=== PATIENT | male | born 1975 | race Caucasian/White ===

== ENCOUNTER 2016-12-12 22:30 | Emergency (ER) | payer SELFPAY ==
[2016-12-12] MEDS ORDERED: ALBUTEROL SULFATE 2.5 MG/3 ML NEB ONE (22:41)
[2016-12-12] MEDS ORDERED: ALBUTEROL SULFATE 8.5 GM HFA INHALER INH SCH (22:45)
[2016-12-12 22:48] VITALS: RESP 18; TEMP 97
--- NOTE | 2016-12-12 22:48 | PDOC ---
Wheezing / Asthma HPI - General Chief Complaint: Wheezing / Asthma Stated Complaint: ASTHMA ATTACK Date Seen by Provider: 12/12/16 Time Seen by Provider: 22:40 Source: POSITIVE: Patient Exam Limitations: POSITIVE: No limitations Nurse's Notes Reviewed & Considered: Yes - History of Present Illness Initial Comments: The patient is a 41-year-old male who presents to the emergency department with asthma stating that he ran out of his albuterol inhaler this morning. He has a history of asthma that has been slightly worse since he moved to this area from [place] 3 months ago. He states that he generally uses albuterol inhaler once or twice a day at the most and some days not at all. He states that he ran out of his albuterol inhaler this morning. This evening he started wheezing and felt like he needed an inhaler and didn't have one. He denies any recent illness or any other associated symptoms. - Patient Home Medications Home Medications: Home Medications Albuterol 17 gm IH PRN 12/12/16 Testosterone Cypionate [Depo-Testosterone] 200 mg IM WEEKLY 12/12/16 - Patient Allergies Allergies/Adverse Reactions: Allergies Allergy/AdvReac Type Severity Reaction Status Date / Time Fish Containing Products Allergy ITCHING Verified 12/12/16 22:36 Past Medical History Past Medical History Reviewed: Other (please comment) (He reports a history of asthma as well as low testosterone) ROS - Limitations ROS Limitations: No Limitations Constitution: DENIES: Chills, Fever Cardiovascular: REPORTS: Other (Some chest tightness from his asthma) Respiratory: REPORTS: Wheezing Neurological: REPORTS: Denies Neuro Symptoms Gastrointestinal: REPORTS: Denies GI Symptoms Wheezing / Asthma Exam - HEENT HEENT: POSITIVE: Head Inspection Nml - General Appearance General Appearance: REPORTS: Alert, No Acute Distress - Neck Neck: REPORTS: Normal Inspection. DENIES: Lymphadenopathy - Respiratory Respiratory: REPORTS: No Respiratory Distress, Speaks Full Sentences, Other (He does have expiratory wheezes bilaterally and some diminished breath sounds) - Cardiovascular Cardiovascular: REPORTS: Regular Rate and Rhythm, Heart Sounds Normal - Skin Skin: REPORTS: Intact, No Rash - Extremities Extremity: Normal ROM: (All Extremities), Normal Inspection: (All Extremities) Wheezing / Asthma Progress - Patient's Progress MDM / ED Course: The patient was given albuterol neb here in the emergency department. He did not exhibit any sign of respiratory distress and oxygen saturations were good on room air. His primary concern was that he had run out of his albuterol inhaler. He was discharged home with an albuterol inhaler which she can take 2 puffs every 4 hours as needed. He is advised return to the emergency room if increased difficulty breathing, fever or productive cough, any worsening or change in symptoms. He is advised to establish primary care for ongoing management. - Consult Counseled: POSITIVE: Patient, RE: DX, RE: Need for F/U Patient Care Time - Estimated PCT Patient Care Time (In Minutes): 10 Vital Signs - VS Reviewed Vital Signs Reviewed: Yes (written documentation reviewed) Discharge Clinical Impression: Asthma Discharge Disposition: Discharged to Home Condition: Stable Patient Instructions Given at Discharge: Asthma (ED) Additional Instructions: Albuterol inhaler 2 puffs every 4 hours as needed. Return to the emergency room if increased occultly breathing, fever or productive cough, any worsening or change in symptoms. Recommend follow-up with primary care in 1 week. Follow Up With: NONE,NONE [Primary Care Provider] -
== END 2016-12-12 23:02 | disposition home or self-care (01) ==
LOC: ER 22:30
DX: J45.909 Unspecified asthma, uncomplicated (principal)
CPT/HCPCS: 94640; 99282

== ENCOUNTER 2017-01-15 16:22 | Emergency (ER) | payer SELFPAY ==
[2017-01-15 16:42] VITALS: RESP 18; TEMP 97.1
[2017-01-15] MEDS ORDERED: IPRATROPIUM/ALBUTEROL SULFATE 3 ML NEB NEB ONE (16:44)
--- NOTE | 2017-01-15 18:37 | PDOC ---
Wheezing / Asthma HPI - General Chief Complaint: Wheezing / Asthma Stated Complaint: needs inhaler Date Seen by Provider: 01/15/17 Time Seen by Provider: 16:30 Source: POSITIVE: Patient Exam Limitations: POSITIVE: No limitations Nurse's Notes Reviewed & Considered: Yes - History of Present Illness Initial Comments: The patient is a 41-year-old male. He states he has a history of asthma since childhood. He normally takes Ventolin inhaler, but is out of this medication has been out for the past 3 weeks. He has just moved to [place] from [place]. He requests a refill of his Ventolin inhaler, and states he has had some mild wheezing for the last several days. He continues to smoke about a half a pack of cigarettes per day. No fevers or chills. Patient states he does not feel particularly short of breath. Mild minimally productive cough. No ENT symptoms. Timing: REPORTS: Gradual Duration: >1 week (Out of inhaler for 3 weeks) Severity: Mild Quality: REPORTS: Other (No pain anywhere) Treatment DATA COMPILER: REPORTS: None Initiating Event: REPORTS: Out of Medications Associated Symptoms: REPORTS: Non-Productive Cough. DENIES: Right, Left, Central, Upper, Lower, Fever, Chills, Sweating, Trouble Breathing, Bloody Cough , Productive Cough, Shortness of Breath, Hurts to Breathe, Chest Discomfort, Chest Pain, Chest Pressure, Chest Tightness, Constant, Intermittent Current Asthma Therapy: REPORTS: Metered Dose Inhaler (Ventolin) Similar Symptoms Previously: Yes Recent Care Received: REPORTS: Denies Any Prior Injuries Related to Current Complaint?: No - Patient Home Medications Home Medications: Home Medications Albuterol 17 gm IH PRN PRN 12/12/16 Testosterone Cypionate [Depo-Testosterone] 200 mg IM WEEKLY 12/12/16 Albuterol Sulfate [Ventolin Hfa] 2 puff INH Q4H PRN #1 inh 01/15/17 - Patient Allergies Allergies/Adverse Reactions: Allergies Allergy/AdvReac Type Severity Reaction Status Date / Time Fish Containing Products Allergy ITCHING Verified 01/15/17 16:28 Past Medical History - yovanny HARRIS History: Denies History Cardiovascular History: Denies History Respiratory History: Asthma Gastrointestinal History: Denies History Genitourinary History: Denies History Endocrine History: Denies History Musculoskeletal History: Denies History Neurological History: Denies History Blood Disorders: Denies History Psychiatric History: Denies History Male Reproductive History: Other (please comment) Additional Male Reproductive History: LOW TESTOSTERONE LEVELS Cancer History: Denies History In Past Year Been Physically Harmed or Verbally Threatened: No History of MDRO: No Tobacco Use: Current Every Day Smoker Alcohol Use: None Substance Use Type: None Previous Surgical History: Yes Type / Date of Surgery: CHOLEC. BOWEL RESECTION Significant Family History: No pertinent family hx Past Medical History Reviewed: Reviewed - No Changes ROS - Limitations ROS Limitations: No Limitations Constitution: REPORTS: Denies Symptoms Cardiovascular: REPORTS: Denies Cardiac Symptoms Respiratory: REPORTS: Cough Non Productive, Wheezing (Mild) Neurological: REPORTS: Denies Neuro Symptoms Gastrointestinal: REPORTS: Denies GI Symptoms Endocrine: REPORTS: Denies Symptoms Musculoskeletal: REPORTS: Denies MS Symptoms Genitourinary: REPORTS: Denies Symptoms Eyes: REPORTS: Denies Symptoms ENT: REPORTS: Denies Symptoms Skin: REPORTS: Denies Skin Symptoms Lympathic: REPORTS: Denies Lympathic Symptoms Immunologic: POSITIVE: Denies Symptoms Psychiatric: POSITIVE: Denies Psych Symptoms Wheezing / Asthma Exam - HEENT HEENT: POSITIVE: Head Inspection Nml, Eyes Inspection Nml, Ears Inspection Nml, Nose Inspection Nml, Oral/Dental Inspect. Nml, Pharynx Inspect. Nml, PERRL, EOMI - General Appearance General Appearance: REPORTS: Alert, Cooperative, No Acute Distress, No Evidence of Trauma - Neck Neck: REPORTS: Normal Inspection, No Apparent Injury - Respiratory Respiratory: REPORTS: No Respiratory Distress, No Pleuritic Chest Pain, Speaks Full Sentences, No Pain on Inspiration, Wheezes. 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 Patient asymptomatic on discharge. Oxygen saturations remained above 94% while in the emergency room. No respiratory distress. Status: POSITIVE: Improved, Re-Examined Wheezing: POSITIVE: None Air Movement: POSITIVE: Good Antibiotics Given: No Nebulizer Treatment Given:: Yes (DuoNeb) - Consult Counseled: POSITIVE: Patient, RE: DX, RE: Need for F/U Patient Care Time - Estimated PCT Patient Care Time (In Minutes): 25 Vital Signs - Recent Vital Signs Vital Signs: Vital Signs (Last 8 hours) Temp Pulse Resp BP Pulse Ox 01/15/17 16:23 97.1 F 88 18 128/89 94 - VS Reviewed Vital Signs Reviewed: Yes Discharge Clinical Impression: Asthma Discharge Disposition: Discharged to Home Condition: Stable Prescriptions / Orders: Albuterol Sulfate [Ventolin Hfa] 2 puff INH Q4H PRN #1 inh PRN Reason: Wheezing Patient Instructions Given at Discharge: Asthma (ED) Additional Instructions: Please stop smoking. This is very important. Ventolin, 2 inhalations every 4 hours as necessary for wheezing. Return any time if condition worsens in any way whatsoever. Follow-up with your primary care provider. Follow Up With: NONE,NONE [Primary Care Provider] - (Follow-up with your primary care provider. Return here anytime if condition worsens in any way.)
== END 2017-01-15 17:04 | disposition home or self-care (01) ==
LOC: ER 16:22
DX: J45.909 Unspecified asthma, uncomplicated (principal); R05 Cough; R06.2 Wheezing
CPT/HCPCS: 94640; 99282 ×2; J7620